=== PATIENT | female | born 1980 | race Caucasian/White ===

== ENCOUNTER 2016-10-17 15:23 | Emergency (ER) | payer BC ==
[~2016-10-17] VITALS: Ht 160 cm; Wt 72.1 kg
--- NOTE | 2016-10-17 15:26 | NUR ---
pt to er bed 08 c/o dizziness w/ n/v x 2-3 days. states last vomitted 2pm today. unable to tolerate food x 2 days now. pt is diabetic. check her bg this am and it was high. gowned and placed on monitor. awaiting md stevens.
--- NOTE | 2016-10-17 15:55 | NUR ---
iv line started blood drawan and sent to lab.
--- NOTE | 2016-10-17 16:20 | NUR ---
dr vargas at bedside for eval.
[2016-10-17] MEDS ORDERED: LEVO50TA8 PO (16:28)
[2016-10-17] MEDS ORDERED: INSU100C10 SQ (16:28)
[2016-10-17] MEDS ORDERED: INSU100V7 SQ (16:28)
[2016-10-17] MEDS ORDERED: ERGO50003 PO (16:28)
[2016-10-17] MEDS ORDERED: BLOO-668 IN (16:28)
[2016-10-17] MEDS ORDERED: ONDANSETRON HCL/PF 4 MG/2 ML VIAL ONE (16:29)
[2016-10-17] MEDS ORDERED: IV SET PRIMARY 1 EA INFUS.SET MC ONE ×2 (16:29→19:41)
[2016-10-17] MEDS ORDERED: IV NS 0.9% 1,000 ML ONE ×3 (16:29→19:41)
[2016-10-17] MEDS ORDERED: ACETAMINOPHEN 325 MG TABLET ONE (16:29)
[2016-10-17] MEDS ORDERED: IV NS 0.9% 1,000 ML BAG IV ONE ×3 (16:30→20:00)
[2016-10-17] MEDS ORDERED: ONDANSETRON HCL/PF 4 MG/2 ML VIAL IVP ONE (16:30)
[2016-10-17] MEDS ORDERED: ACETAMINOPHEN 325 MG TABLET PO ONE (16:30)
[2016-10-17 16:35] LABS: BASOPHILS # (AUTO) 0.1 /CMM (0.0-0.2); BASOPHILS % (AUTO) 0.4 % (0.0-2.0); EOSINOPHILS # (AUTO) 0.1 /CMM (0.0-0.7); EOSINOPHILS % (AUTO) 0.4 % (0.0-6.0); HEMATOCRIT 43 % (33-45); LYMPHOCYTES # (AUTO) 2.5 /CMM (0.8-4.8); LYMPHOCYTES % (AUTO) 17.9 % (20.0-44.0); MEAN CORPUSCULAR HEMOGLOBIN 31 PG (26.0-33.0); MEAN CORPUSCULAR HGB CONC 35 g/dl (31.0-36.0); MEAN CORPUSCULAR VOLUME 88 fL (82-100); MONOCYTES # (AUTO) 0.3 /CMM (0.1-1.30); MONOCYTES % (AUTO) 2.5 % (2.0-12.0); NEUTROPHILS % (AUTO) 78.8 % (43.0-81.0); PLATELET COUNT (AUTO) 272 /CMM (150-450); RDW COEFFICIENT OF VARIATION 10.9 (11.5-15.0); RED BLOOD CELL COUNT(AUTO) 4.88 MIL/uL (4.0-5.2)
[2016-10-17 16:40] LABS: APPEARANCE,URINE Clear (CLEAR); BLOOD, URINE Negative Ery/uL (NEGATIVE); COLOR,URINE Yellow (YELLOW); KETONES,URINE >=160 (NEGATIVE); LEUKOCYTE ESTERASE ,URINE Negative (NEGATIVE); NITRITE, URINE Negative (NEGATIVE); PH,URINE 5.5 (5.0-8.0); PROTEIN,URINE Trace mg/dl (NEGATIVE); UROBILINOGEN,URINE 0.2 EU/dL (0.2)
[2016-10-17 16:43] LABS: BILIRUBIN,URINE SMALL (NEGATIVE); UGLUCOSE 500 MG/DL mg/dL (NEGATIVE)
[2016-10-17 16:44] LABS: PREGNANCY TEST URINE QUAL NEGATIVE (NEGATIVE)
[2016-10-17 16:46] LABS: CALCIUM, SERUM 9.2 mg/dL (8.5-10.1); CARBON DIOXIDE 23 mmol/L (21-32); CHLORIDE 99 mmol/L (98-107); CREATININE 0.6 mg/dL (0.6-1.3); GFR 114 mL/min (>60); GLUCOSE 269 mg/dL (74-106); POTASSIUM 3.9 mmol/L (3.5-5.1); SODIUM SERUM 131 mmol/L (136-145); UREA NITROGEN, BLOOD 11 mg/dL (7-18)
[2016-10-17 16:52] LABS: ALANINE AMINOTRANSFERASE 18 U/L (12-78); ALBUMIN 3.9 g/dL (3.4-5.0); ALKALINE PHOSPHATASE 70 U/L (46-116); ASPARTATE AMINOTRANSFERASE 9 U/L (15-37); BILIRUBIN,DIRECT 0.1 mg/dL (0.0-0.2); BILIRUBIN,TOTAL 1.1 mg/dL (0.2-1.0); LIPASE 54 U/L (73-393)
[2016-10-17 16:53] LABS: TROPONIN I < 0.017 ng/mL (0.00-0.056)
[2016-10-17 17:13] LABS: CLINITEST,URINE 1%; RBC,URINE 0-2 /HPF (0-2)
[2016-10-17 17:14] LABS: ADD URINE CULTURE NO; BACTERIA,URINE Few /HPF (None Seen); SQUAMOUS EPITHELIAL CELL,UR Moderate /HPF (None Seen)
[2016-10-17] MEDS ORDERED: METOCLOPRAMIDE HCL 10 MG/2 ML VIAL ONE (19:40)
[2016-10-17] MEDS ORDERED: METOCLOPRAMIDE HCL 10 MG/2 ML VIAL IV ONE (20:00)
--- NOTE | 2016-10-17 21:20 | NUR ---
IV removed. Catheter intact and site benign. Pressure and 4x4 applied to site. No bleeding noted. Patient discharged to home in stable condition. Written and verbal after care instructions given. Patient verbalizes understanding of instruction. ambulatory with a steady gait
[2016-10-17 21:21] VITALS: BP 121/67
== END 2016-10-17 21:21 | disposition home or self-care (01) ==
LOC: ER 15:26
DX: E11.65 Type 2 diabetes mellitus with hyperglycemia (principal); E86.0 Dehydration; Z79.4 Long term (current) use of insulin; Z88.0 Allergy status to penicillin
CPT/HCPCS: 36415; 71010; 80048; 80076; 81001; 82962 ×2; 83690; 84484; 84703; 85025; 93005; 96361; 96374; 96375; 99285; A4606; J2405; J2765; J7030 ×3; Z7610; 81000-TC